=== PATIENT | female | born 1965 | race African-American/Black ===

== ENCOUNTER 2018-03-25 09:51 | Emergency (ER) | payer MEDICAID, OTHER ==
[~2018-03-25] VITALS: Ht 160 cm; Wt 54.0 kg
[2018-03-25 11:38] VITALS: BP 138/91
== END 2018-03-25 12:31 | disposition home or self-care (01) ==
LOC: ER 10:37
DX: S00.36XA Insect bite (nonvenomous) of nose, initial encounter (principal); B00.1 Herpesviral vesicular dermatitis; I10 Essential (primary) hypertension; E78.00 Pure hypercholesterolemia, unspecified; Z88.8 Allergy status to other drugs, medicaments and biological substances; W57.XXXA Bitten or stung by nonvenomous insect and other nonvenomous arthropods, initial encounter; Y93.89 Activity, other specified; Y92.007 Garden or yard of unspecified non-institutional (private) residence as the place of occurrence of the external cause; Y99.8 Other external cause status
CPT/HCPCS: 99283

== ENCOUNTER 2019-07-06 17:06 | Emergency (ER) | payer MEDICAID ==
[~2019-07-06] VITALS: Ht 180.3 cm; Wt 53.0 kg
[2019-07-06] MEDS ORDERED: MAGNESIUM/ALUMINUM HYDROXIDE/SIMETHICONE 30ML UDC PO ONE (19:00)
[2019-07-06] MEDS ORDERED: ASPIRIN 81MG TABLET PO ONE (19:00)
[2019-07-06] MEDS ORDERED: VISCOUS LIDOCAINE 2% 15 ML UDC PO ONE (19:00)
[2019-07-06 19:16] LABS: BASOPHILS % 0.5 % (0.0-2.0); EOSINOPHILS % 0.2 % (0.0-5.0); HEMATOCRIT. 44.2 % (36.0-48.0); HEMOGLOBIN. 15.1 g/dL (12.0-16.0); LYMPHOCYTES % 9.7 % (20.0-50.0); MEAN CORPUSCULAR HEMOGLOBIN 34.2 pg (28.0-32.0); MEAN PLATELET VOLUME 10.3 fl (7.4-10.4); MONOCYTES % 4.7 % (2.0-8.0); NEUTROPHILS % 84.9 % (40.0-76.0); PLATELET 176 x1000/uL (130-400); RED BLOOD CELL COUNT 4.42 mill/uL (4.2-5.4); RED CELL DISTRIBUTION WIDTH 12.5 % (11.6-14.6)
[2019-07-06 19:17] LABS: CHLORIDE 106 mEq/L (98-107)
[2019-07-06] MEDS ORDERED: MORPHINE SULFATE 10 MG/ML CPJ IV ONE ×2 (19:30→23:00)
[2019-07-06] MEDS ORDERED: POTASSIUM CHLORIDE 20MEQ TABLET SR PO ONE (23:00)
[2019-07-06] MEDS ORDERED: KETOROLAC 30MG/ML VIAL IV ONE (23:00)
[2019-07-07] MEDS ORDERED: ONDANSETRON HCL 4MG/2ML INJ IV ONE (00:15)
[2019-07-07] MEDS ORDERED: ETOMIDATE 2MG/ML 10ML VIAL IV ONE (00:15)
[2019-07-07 01:00] VITALS: BP 157/81
== END 2019-07-07 01:00 | disposition short-term general hospital (02) ==
LOC: ER 17:06
DX: S42.401A Unspecified fracture of lower end of right humerus, initial encounter for closed fracture (principal); E78.00 Pure hypercholesterolemia, unspecified; I10 Essential (primary) hypertension; F12.10 Cannabis abuse, uncomplicated; W18.39XA Other fall on same level, initial encounter; Y93.89 Activity, other specified; Y92.89 Other specified places as the place of occurrence of the external cause; Y99.8 Other external cause status; Z98.890 Other specified postprocedural states; Z88.1 Allergy status to other antibiotic agents
CPT/HCPCS: 24600; 36415; 71045; 73070; 80053; 83880; 84484; 85025; 93005; 96374; 96375; 96376; 99285; J1885; J2270; J2405; J3490; Z7610

== ENCOUNTER 2021-11-03 14:00 | Emergency (ER) | payer MEDICAID ==
[~2021-11-03] VITALS: Ht 152.4 cm; Wt 51.0 kg
[2021-11-03 14:36] VITALS: BP 159/98
[2021-11-03] MEDS ORDERED: KETOROLAC 60MG/2ML VIAL IM STA (14:43)
== END 2021-11-04 00:51 | disposition left against medical advice (07) ==
LOC: ER 14:00
DX: U07.1 COVID-19 (principal); R05.9 Cough, unspecified; R50.9 Fever, unspecified; R10.9 Unspecified abdominal pain; R07.9 Chest pain, unspecified; R06.02 Shortness of breath; R11.10 Vomiting, unspecified; Z53.21 Procedure and treatment not carried out due to patient leaving prior to being seen by health care provider
CPT/HCPCS: 71045; C9803; U0003; U0005